=== PATIENT | male | born 1965 | race Caucasian/White ===

== ENCOUNTER → 2022-10-22 | Outpatient (REF) | payer BC | LOC: M SFHCDERM 13:18 | PROVIDERS: ATTEND Nurse Practitioner Family | DX: L82.1 Other seborrheic keratosis (principal) ==

== ENCOUNTER → 2024-04-04 | Outpatient (REF) | payer BC | LOC: M SFHCDERM 12:33 | PROVIDERS: ATTEND Nurse Practitioner Family | DX: D49.2 Neoplasm of unspecified behavior of bone, soft tissue, and skin (principal) ==

== ENCOUNTER → 2025-08-03 | Outpatient (REF) | payer BC | LOC: M SFHCDERM 14:29 | PROVIDERS: ATTEND Nurse Practitioner Family | DX: D48.5 Neoplasm of uncertain behavior of skin (principal) ==